=== PATIENT | male | born 1960 | race Two or more races ===

== ENCOUNTER 2018-10-28 11:59 | Inpatient (IN) | payer MEDICARE, OTHER ==
[~2018-10-28] VITALS: Ht 175.3 cm; Wt 86.2 kg
[2018-10-28 12:00] VITALS: BP 141/75
[2018-10-28] MEDS ORDERED: LIPITOR80 MG ORAL (12:12)
[2018-10-28] MEDS ORDERED: FOLIC ACID1 M1 PO (12:19)
[2018-10-28] MEDS ORDERED: FENOFIBRATE145 M1 ORAL (12:19)
[2018-10-28] MEDS ORDERED: CLOPIDOGREL75 MG ORAL (12:19)
[2018-10-28] MEDS ORDERED: NORCO 5-325 TA1 EACH ORAL (12:19)
[2018-10-28] MEDS ORDERED: ATORVASTATIN CA40 MG ORAL (12:19)
[2018-10-28] MEDS ORDERED: POTASSIUM CHLO10 ME3 ORAL (12:19)
[2018-10-28] MEDS ORDERED: BENAZEPRIL HCL40 MG ORAL (12:19)
[2018-10-28] MEDS ORDERED: METFORMIN500 MG/5 M PO (12:19)
[2018-10-28] MEDS ORDERED: CHANTIX0.5 MG PO (12:19)
[2018-10-28] MEDS ORDERED: CENTRUM SILVER1 EAC2 PO (12:19)
[2018-10-28] MEDS ORDERED: VERAPAMIL ER240 M2 PO (12:19)
[2018-10-28] MEDS ORDERED: PYRIDOXINE HCL25 MG PO (12:19)
[2018-10-28] MEDS ORDERED: Sodium Chloride 500ML 500 ML IV ONE (13:23)
[2018-10-28 13:55] LABS: BASOPHILS % (AUTO) 0.7 % (0.0-2.0); EOSINOPHILS % (AUTO) 0.4 % (0.0-3.0); HEMATOCRIT 50.8 % (42.0-52.0); LYMPHOCYTES % (AUTO) 17.4 % (20.0-45.0); MEAN CORPUSCULAR VOLUME 81 FL (80-99); MONOCYTES % (AUTO) 4.6 % (1.0-10.0); NEUTROPHILS % (AUTO) 76.9 % (45.0-75.0); PLATELET COUNT 339 K/UL (150-450); RED BLOOD COUNT 6.28 M/UL (4.70-6.10); RED CELL DISTRIBUTION WIDTH 13.2 % (11.6-14.8); WHITE BLOOD COUNT 10.7 K/UL (4.8-10.8)
[2018-10-28 13:57] LABS: ANION GAP 11 mmol/L (5-15); BLOOD UREA NITROGEN 17 mg/dL (7-18); CALCIUM 9.4 MG/DL (8.5-10.1); CARBON DIOXIDE 27 MMOL/L (21-32); CHLORIDE 106 MMOL/L (98-107); CREATININE 0.9 MG/DL (0.55-1.30); POTASSIUM 3.7 MMOL/L (3.5-5.1); SODIUM 144 MMOL/L (136-145)
[2018-10-28 14:11] LABS: ALANINE AMINOTRANSFERASE 28 U/L (12-78); ALBUMIN 3.7 G/DL (3.4-5.0); ALBUMIN/GLOBULIN RATIO 0.8 (1.0-2.7); ALKALINE PHOSPHATASE 59 U/L (46-116); ASPARTATE AMINO TRANSFERASE 23 U/L (15-37); BILIRUBIN,TOTAL 0.4 MG/DL (0.2-1.0); CKMB 1.6 NG/ML (0.0-3.6); CREATINE KINASE 74 U/L (26-308)
--- NOTE | 2018-10-28 15:04 | Diagnostic Imaging Report ---
Indications: Dizziness Technique: Spiral acquisitions obtained through the brain. Angled axial and coronal 5 x 5 mm slices were reconstructed. Total dose length product 1587.22 mGycm. CTDI vol(s) 70.38 mGy. Dose reduction achieved using automated exposure control Comparison: None. Findings: There is a large right high parietal craniectomy defect with overlying flap. The outer edges of the flap appear calcified. Gas bubbles are seen within the flap. Deep to this is a large area of cystic encephalomalacia. There is resultant ex vacuo dilatation of the body of the right lateral ventricle. Multiple lacunar infarcts are seen in the basal ganglia bilaterally. No acute intracranial hemorrhage. No edema. No mass effect nor midline shift. Otherwise normal traylor-white differentiation. The included sinuses are clear. The mastoids are clear. The orbits are unremarkable. Impression: Evidence of prior right high parietal craniectomy. Note unusual finding of gas bubbles within the past bubbles within the overlying flap. Significance of this is uncertain, possibly of infection should be considered. Comparison with prior exams if any available would be useful Large area of right right middle cystic encephalomalacia, presumably related to the above surgery. Correlate with surgical history. Multiple old bilateral lacunar infarcts Findings discussed by phone with Dr. Ribeiro in the emergency room at the time of interpretation The CT scanner at [facility] is accredited by the [employer] and the scans are performed using protocols designed to limit radiation exposure to as low as reasonably achievable to attain images of sufficient resolution adequate for diagnostic evaluation.
--- NOTE | 2018-10-28 15:15 | Emergency Room Report ---
History of Present Illness General Chief Complaint: Generalized Weakness Source: Patient Present Illness HPI Patient presents with complaints of dizziness Reports that over the past 2 days he had extreme ataxia as well Patient reports that he had a large CVA in 1999 for Reports that initially as a child he also had a plastic flap Which had to be changed later Patient usually and weight with a walker Again reports that over the past 2 days he has had difficulty walking feels unstable also reaching for different things he feels different from his usual Denies any focal weakness denies any headache denies any fevers denies any neck pain Patient reports that 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 but 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 Allergies: Coded Allergies: No Known Allergies (Unverified , 10/28/18) Patient History Past Medical History: see triage record Pertinent Family History: none Reviewed Nursing Documentation: PMH: Agreed; PSxH: Agreed Nursing Documentation-PMH Hx Diabetes: Yes Review of Systems All Other Systems: negative except mentioned in HPI Physical Exam Vital Signs Date Time Temp Pulse Resp B/P (MAP) Pulse Ox O2 Delivery O2 Flow Rate FiO2 10/28/18 11:48 99.1 72 16 154/76 100 Room Air Sp02 EP Interpretation: reviewed, normal General Appearance: well appearing, no apparent distress Head: other - Right flap on the right parietal region Eyes: right eye other - lazy eye ENT: normal pharynx, no angioedema Neck: supple Respiratory: lungs clear, normal breath sounds, no retraction Cardiovascular #1: regular rate, rhythm, no gallop Gastrointestinal: non tender, soft, no mass Musculoskeletal: other - Patient has some essential tremors, equal professional driver bilaterally, shows signs of unsteady gait however no obvious focal deficit Neurologic: alert, oriented x3, other - As above Skin: normal color, no rash Lymphatic: no adenopathy Medical Decision Making Diagnostic Impression: Primary Impression: Ataxia Additional Impression: Dizziness ER Course Patient is a fairly complex patient with multiple differential to consideration including but not limited to cardiac cardiopulmonary, neurological, neurosurgical and vascular emergencies Patient CT head was reported by radiology as having areas of air bubbles will differentials were considered for this Including chronic changes versus possible infectious pathology Patient is afebrile Does not show any focality on his exam However given his ataxic complaints and multiple comorbidities Patient is requested for inpatient admission and care Attempt is being made to obtain previous CT imaging from [facility] Labs Test 11/29/18 13:14 White Blood Count 10.7 K/UL (4.8-10.8) Red Blood Count 6.28 M/UL (4.70-6.10) Hemoglobin 17.0 G/DL (14.2-18.0) Hematocrit 50.8 % (42.0-52.0) Mean Corpuscular Volume 81 FL (80-99) Mean Corpuscular Hemoglobin 27.0 PG (27.0-31.0) Mean Corpuscular Hemoglobin Concent 33.4 G/DL (32.0-36.0) Red Cell Distribution Width 13.2 % (11.6-14.8) Platelet Count 339 K/UL (150-450) Mean Platelet Volume 6.8 FL (6.5-10.1) Neutrophils (%) (Auto) 76.9 % (45.0-75.0) Lymphocytes (%) (Auto) 17.4 % (20.0-45.0) Monocytes (%) (Auto) 4.6 % (1.0-10.0) Eosinophils (%) (Auto) 0.4 % (0.0-3.0) Basophils (%) (Auto) 0.7 % (0.0-2.0) Sodium Level 144 MMOL/L (136-145) Potassium Level 3.7 MMOL/L (3.5-5.1) Chloride Level 106 MMOL/L (98-107) Carbon Dioxide Level 27 MMOL/L (21-32) Anion Gap 11 mmol/L (5-15) Blood Urea Nitrogen 17 mg/dL (7-18) Creatinine 0.9 MG/DL (0.55-1.30) Estimat Glomerular Filtration Rate > 60 mL/min (>60) Glucose Level 100 MG/DL (74-106) Calcium Level 9.4 MG/DL (8.5-10.1) Total Bilirubin 0.4 MG/DL (0.2-1.0) Aspartate Amino Transf (AST/SGOT) 23 U/L (15-37) Alanine Aminotransferase (ALT/SGPT) 28 U/L (12-78) Alkaline Phosphatase 59 U/L (46-116) Total Creatine Kinase 74 U/L (26-308) Creatine Kinase MB 1.6 NG/ML (0.0-3.6) Creatine Kinase MB Relative Index 2.1 Troponin I 0.000 ng/mL (0.000-0.056) Total Protein 8.3 G/DL (6.4-8.2) Albumin 3.7 G/DL (3.4-5.0) Globulin 4.6 g/dL Albumin/Globulin Ratio 0.8 (1.0-2.7) Rhythm Strip Diag. Results EP Interpretation: yes Rate: 88 Rhythm: NSR, no PVC's, no ectopy CT/MRI/US Diagnostic Results CT/MRI/US Diagnostic Results : Impression CT headImpression: Evidence of prior right high parietal craniectomy. Note unusual finding of gas bubbles within the past bubbles within the overlying flap. Significance of this is uncertain, possibly of infection should be considered. Comparison with prior exams if any available would be useful Large area of right right middle cystic encephalomalacia, presumably related to the above surgery. Correlate with surgical history. Multiple old bilateral lacunar infarcts Last Vital Signs Date Time Temp Pulse Resp B/P (MAP) Pulse Ox O2 Delivery O2 Flow Rate FiO2 10/28/18 12:00 74 16 Room Air 10/28/18 12:00 97.8 141/75 98 Status: improved Disposition: ADMITTED INPATIENT Condition: Serious Mj Ribeiro DO Oct 28, 2018 15:15
--- NOTE | 2018-10-28 16:59 | Diagnostic Imaging Report ---
Indication: Chest pain Technique: One view of the chest Comparison: none Findings: Lungs and pleural spaces are clear. Heart size is normal Impression: No acute process
[2018-10-28 19:40] VITALS: BP 143/85
[2018-10-28 20:05] VITALS: BP 143/85
[2018-10-28] MEDS ORDERED: Gadavist 7.5mMol/7.5ml vial IV PRN (20:15)
[2018-10-28] MEDS ORDERED: Aspirin Baby 81mg ORAL SCH (20:15)
[2018-10-28] MEDS ORDERED: Tylenol #3 tab (300mg/30mg) ORAL PRN (20:30)
[2018-10-28] MEDS: Atorvastatin 20mg tab ORAL SCH (22:28)
[2018-10-28] MEDS: Heparin 5000 units/ml inj SUBQ SCH (22:29)
[2018-10-28] MEDS: 1/2NS w/KCl 20mEq 1000ml 1,000 ML IV SCH (22:29)
[2018-10-28] MEDS: NovoLOG Insulin Flexpen SUBQ SCH (22:30)
--- NOTE | 2018-10-28 22:45 | History and Physical Report ---
DATE OF ADMISSION: 10/28/2018 REASON FOR ADMISSION: Dizziness, weakness, and abnormal CT scan of the brain. HISTORY OF PRESENT ILLNESS: This is a 58-year-old male, who has had two days of progressive ataxia and dizziness upon standing. He notes symptoms were fairly acute in onset and progressive and relatively unusual for him although he does have a baseline neurologic deficits. Today, he was unable to get out of bed and mobilize to prepare any food for himself and has not eaten as a result. He came to the emergency room for further evaluation. The patient has a history of childhood head trauma and had a posterior plastic flap placement in the occiput. He also suffered several strokes the most significant was in the year 1999 which resulted in left-sided weakness and blindness for some time that has recovered. His mobility is also impaired at baseline due to the left foot drop and recent foot surgery bilaterally. MEDICATIONS: Prior to admission, reviewed and reconciled. ALLERGIES: None known. PAST MEDICAL HISTORY: History of head trauma as described above, cerebrovascular disease with prior cerebrovascular accident, type 2 diabetes mellitus, hypertension, hypertriglyceridemia. FAMILY HISTORY: Noncontributory. SOCIAL HISTORY: He denies smoking, alcohol, or substance abuse. REVIEW OF SYSTEMS: No fevers or chills. No cough or sputum production. No history of asthma or blood clots in the legs. His diabetes is managed with oral therapy. He has been on anti-lipid drugs. There is no history of thyroid impairment. His blood pressure has been controlled. He denies any exertional chest pain. No history of heart attacks. He has not had any change in bowel habits. There is no history of prostate cancer or elevated PSA. No kidney disease. PHYSICAL EXAMINATION: VITAL SIGNS: Temperature 99.1, blood pressure 154/76, heart rate 72, respiratory rate 16, and oxygen saturation on room air 100%. HEENT: Scalp reveals a soft bulging area on the occiput. Conjunctiva pink. Sclerae are anicteric. Oropharynx clear. Mucous membranes moist. NECK: Supple. Jugular venous pressure normal. Carotid upstrokes without delay. LUNGS: Clear. CARDIAC: Regular rhythm and rate. Normal S1 and S2 with a fourth heart sound. ABDOMEN: Soft and nontender. No guarding, rebound or hepatosplenomegaly. EXTREMITIES: With no edema. He walks with a cane. His gait is unsteady. No gross orthostatic changes are noted. canals are without wax. LABORATORY AND DIAGNOSTIC DATA: EKG reveals sinus rhythm, nonspecific ST-T wave change. CAT scan of the brain reveals large area of right middle cystic encephalomalacia, prior right high parietal craniectomy. The flap has some gas bubbles of uncertain etiology, bilateral lacunar infarcts noted. LABORATORY DATA: White count 10.7, hemoglobin 17. Chemistry panel within normal limits. Troponin negative. IMPRESSION: This is a 58-year-old male with prior cerebrovascular accident and head trauma with encephalomalacia and flap who has an abnormal CAT scan study that suggests some unusual gas bubbles in the flap region. It is unclear whether these may represent a new infection or chronic scarred related changes. Further the patient has complaints of dizziness and unsteadiness and orthostatic symptoms. Considerations would include cerebrovascular insufficiency, metabolic derangement, or BPPV. Other problems include hypertension, type 2 diabetes mellitus, and hypertriglyceridemia. RECOMMENDATIONS: 1. Hydration. 2. Monitor orthostatics. 3. Metabolic profile. 4. MRI scan of the brain with gadolinium. 5. Neuro consult to follow. 6. Carotid duplex study. 7. Insulin coverage by sliding scale. 8. Avoid tight blood pressure control. 9. Anti-platelet and anti-lipid therapy at this time. 10. Further recommendations will follow. Alexander Schuler M.D. DR: Louis JOB#: [id number] CC:
[2018-10-29 00:13] VITALS: BP 141/84
[2018-10-29 04:51] VITALS: BP 155/94
[2018-10-29] MEDS: 1/2NS w/KCl 20mEq 1000ml 1,000 ML IV SCH ×3 (04:57→21:00)
[2018-10-29] MEDS: NovoLOG Insulin Flexpen SUBQ SCH ×4 (06:00→21:00)
[2018-10-29] MEDS: metFORMIN 500mg tab ORAL SCH ×2 (06:01→17:12)
[2018-10-29] MEDS ORDERED: NovoLOG Insulin Flexpen SUBQ SCH (06:30)
[2018-10-29 07:14] LABS: BASOPHILS % (AUTO) 0.8 % (0.0-2.0); EOSINOPHILS % (AUTO) 3.2 % (0.0-3.0); HEMATOCRIT 48.1 % (42.0-52.0); LYMPHOCYTES % (AUTO) 29.1 % (20.0-45.0); MEAN CORPUSCULAR VOLUME 80 FL (80-99); NEUTROPHILS % (AUTO) 58.8 % (45.0-75.0); PLATELET COUNT 342 K/UL (150-450); RED BLOOD COUNT 6.01 M/UL (4.70-6.10); RED CELL DISTRIBUTION WIDTH 13.1 % (11.6-14.8); WHITE BLOOD COUNT 9.9 K/UL (4.8-10.8)
[2018-10-29 07:28] LABS: ALANINE AMINOTRANSFERASE 26 U/L (12-78); ALBUMIN 3.5 G/DL (3.4-5.0); ALBUMIN/GLOBULIN RATIO 0.8 (1.0-2.7); ALKALINE PHOSPHATASE 57 U/L (46-116); ANION GAP 11 mmol/L (5-15); ASPARTATE AMINO TRANSFERASE 20 U/L (15-37); BILIRUBIN,TOTAL 0.4 MG/DL (0.2-1.0); BLOOD UREA NITROGEN 21 mg/dL (7-18); CALCIUM 8.9 MG/DL (8.5-10.1); CARBON DIOXIDE 23 MMOL/L (21-32); CHLORIDE 108 MMOL/L (98-107); CHOLESTEROL 122 MG/DL (< 200); CREATININE 0.8 MG/DL (0.55-1.30); HDL CHOLESTEROL 32 MG/DL (40-60); POTASSIUM 3.6 MMOL/L (3.5-5.1); SODIUM 142 MMOL/L (136-145); TRIGLYCERIDES 288 MG/DL (30-150)
[2018-10-29 08:00] VITALS: BP 146/82
[2018-10-29] MEDS: Pyridoxine 50mg tab ORAL SCH (10:16)
[2018-10-29] MEDS: Heparin 5000 units/ml inj SUBQ SCH ×2 (10:24→21:34)
--- NOTE | 2018-10-29 11:23 | Diagnostic Imaging Report ---
Indication: Dizziness. History of craniotomy Technique: sagittal T1 fast spin echo, axial T1 and T2 FLAIR PROPELLER, axial T2 FS PROPELLER, T2* GRE, axial diffusion weighted images, post contrast axial and coronal T1 FLAIR PROPELLER images. ADC and exponential ADC maps generated Comparison: Head CT 10/28/2018 Findings: Exam is somewhat limited, as the postcontrast axial images do not include the vertex. Per technologist, patient moved during the exam but this was not caught at the time. There is a right parietal craniectomy, also demonstrated previously. There is susceptibility artifact from a flap, presumably from the metal fasteners at the periphery. Low T1 signal is seen within the layers of the flap. It is otherwise well demonstrated on the other axial sequences.. On the postcontrast images, the flap does not appear to be hyperemic. The gas bubbles described on recent CT scan are not apparent on MR. There is subjacent cystic encephalomalacia of the right parietal lobe, resulting in ex vacuo dilatation of the posterior body of the right lateral ventricle. No evidence of associated hemorrhage. No abnormal areas of restricted diffusion to suggest acute infarction. No acute hemorrhage or edema. No mass effect nor midline shift. No abnormal contrast enhancement. There is age-related enlargement of the ventricles and extra axial CSF spaces, in addition to the ex vacuo dilatation as described above. Multiple lacunar infarcts are seen in the bilateral thalami, bilateral basal ganglia, bilateral mays radiata. The vascular flow voids are preserved.. Visualized orbits and sinuses are unremarkable. Impression: Right parietal craniectomy. Note that gas bubbles are seen within the flap on recent CT, not apparent on MRI. No definite hyperemia of the flap to suggest infection Large area of cystic encephalomalacia of the right parietal lobe, presumably relating to the prior surgery. Correlation with surgical history is recommended Multiple old bilateral lacunar infarcts Age-related volume loss and periventricular deep white matter low-attenuation consistent with chronic deep white matter ischemic change Negative for acute intrarenal bleed, mass effect, infarct, or contrast enhancing lesion.
[2018-10-29 12:00] VITALS: BP 148/98
[2018-10-29 16:00] VITALS: BP 135/70
[2018-10-29 20:34] VITALS: BP 130/93
[2018-10-29] MEDS: Atorvastatin 20mg tab ORAL SCH (21:30)
--- NOTE | 2018-10-29 23:15 | Progress Note ---
DATE: 10/29/2018 CARDIOLOGY AND INTERNAL MEDICINE PROGRESS NOTE SUBJECTIVE: The patient feels slightly better. Still dizzy and unsteady on his feet. He usually ambulates with a cane, but he was not able to do so alone at this time with feeling that he may fall. OBJECTIVE: VITAL SIGNS: Blood pressure 148/98, pulse 72, respiratory rate 20, and afebrile. HEENT: Ear canals are clear. NECK: Supple. LUNGS: Clear. CARDIAC: Regular. Normal S1 and S2 with a fourth heart sound. ABDOMEN: Soft. EXTREMITIES: With no edema. Left-sided weakness noted. LABORATORY AND IMAGING DATA: An MRI of the brain reveals no evidence of "bubbles" in the occipital flap from prior head trauma, and multiple old strokes. White count 9.9 and hemoglobin 16. Potassium 3.6, BUN 29, and creatinine 0.8. Triglycerides 288 and total cholesterol 122. Folate 65. TSH 1.7. B12 and vitamin D pending. IMPRESSION: This is a 58-year-old male with cerebrovascular disease, prior cerebrovascular accident, left footdrop, and prior history of head trauma as a young man, who presented with unsteady gait, dizziness, and some ataxia. Concerns at this time would include subcortical cerebrovascular accident or BPPV. His MRI does not reveal any sign of infection and his cardiovascular parameters reveal slightly elevated blood pressure, but otherwise stable parameters. Elevated triglycerides are noted as well. RECOMMENDATIONS: 1. Continue observation. 2. Neuro checks. 3. Hydration. 4. Await results of B12 level. 5. Monitor orthostatic anti-lipid therapy. 6. DVT prophylaxis. 7. Physical and occupational therapy assessments. Alexander Schuler M.D. : RIC JOB#: [id number] CC:
[2018-10-30] VITALS: BP 139/88
[2018-10-30 04:00] VITALS: BP 124/72
[2018-10-30] MEDS: NovoLOG Insulin Flexpen SUBQ SCH ×4 (06:23→21:00)
[2018-10-30] MEDS: metFORMIN 500mg tab ORAL SCH ×2 (06:31→17:37)
[2018-10-30 08:00] VITALS: BP 139/89
[2018-10-30] MEDS: Pyridoxine 50mg tab ORAL SCH (09:21)
[2018-10-30] MEDS: Heparin 5000 units/ml inj SUBQ SCH ×2 (09:22→21:24)
[2018-10-30] MEDS ORDERED: 1/2NS w/KCl 20mEq 1000ml 1,000 ML IV SCH ×2 (10:30→21:00)
[2018-10-30 12:00] VITALS: BP 176/100
--- NOTE | 2018-10-30 14:42 | Cardiology Report ---
APPROVED REPORT EXAM: Two-dimensional and M-mode echocardiogram with Doppler and color Doppler. INDICATION CVA/TIA M-Mode DIMENSIONS IVSd0.9 (0.7-1.1cm)Left Atrium (MM)4.2 (1.6-4.0cm) LVDd5.3 (3.5-5.6cm)Aortic Root3.7 (2.0-3.7cm) PWd1.3 (0.7-1.1cm)Aortic Cusp Exc.2.0 (1.5-2.0cm) LVDs3.5 (2.5-4.0cm) PWs1.6 cm Normal left ventricular chamber size, systolic function and wall motion. Left ventricular ejection fraction estimated to be 55 %. Borderline mild left ventricular hypertrophy. No evidence of pericardial effusion. All other cardiac chamber sizes are within normal limits. Mild focal aortic valve sclerosis with adequate cusp excursion. Mildly thickened mitral valve leaflets with normal excursion. Mitral annulus and aortic root calcification. Pulmonic valve not well visualized. Normal tricuspid valve structure. IVC measured 2.1 cm with physiologic collapse. A color flow and spectral Doppler study was performed and revealed: Trace mitral regurgitation. Mitral diastolic velocities suggest reduced left ventricular relaxation c/w borderline LV diastolic dysfunction. Trace tricuspid regurgitation. Tricuspid systolic velocities suggests peak right ventricular systolic pressure of 15 mmHg.
[2018-10-30] MEDS: 1/2NS w/KCl 20mEq 1000ml 1,000 ML IV SCH (15:17)
[2018-10-30 16:00] VITALS: BP 139/87
[2018-10-30 20:04] VITALS: BP 143/88
[2018-10-30] MEDS: Atorvastatin 20mg tab ORAL SCH (21:25)
--- NOTE | 2018-10-30 23:00 | Progress Note ---
DATE: 10/30/2018 INTERNAL MEDICINE AND CARDIOLOGY PROGRESS NOTE SUBJECTIVE: The patient ____ feel better, but still has dizziness at times, not necessarily upon standing and not definitively with head turning. He has nonorthostatic based on vital signs. OBJECTIVE: VITAL SIGNS: Blood pressure 138/89, pulse 78, respirations 18, and temperature max 99.6 degrees. LUNGS: Clear. CARDIAC: Regular. Normal S1 and S2 with no murmur. ABDOMEN: Soft. EXTREMITIES: No edema. Left foot drop is noted. Mild left weakness is noted. DIAGNOSTIC DATA: Echocardiogram with normal ejection fraction and mild degenerative valve disease. MRI of the brain with multiple old bilateral lacunar infarcts and encephalomalacia with no signs of bubbles in the flap from prior injury site. IMPRESSION: 1. Possible subcortical CVA. 2. Possible BPPV. 3. Chronic gait abnormality due to foot drop and prior CVA. 4. Hypertensive heart disease. 5. Type 2 diabetes mellitus. 6. Hyperlipidemia. PLAN: 1. Adjust IV fluids. 2. Advance diet. 3. Mobilize with physical therapy, antiplatelet therapy, and anti-lipid therapy. 4. Optimize blood glucose and high blood pressure control. DISCHARGE PLANNING: Await carotid duplex study. Alexander Schuler M.D. DR: NOEL JOB#: [id number] CC:
[2018-10-31] VITALS (7 sets, daily range): BP systolic 133–152; BP diastolic 86–105
[2018-10-31] MEDS: NovoLOG Insulin Flexpen SUBQ SCH ×4 (06:20→20:41)
[2018-10-31] MEDS: metFORMIN 500mg tab ORAL SCH ×2 (06:53→17:02)
[2018-10-31 08:13] LABS: BASOPHILS % (AUTO) 1.2 % (0.0-2.0); EOSINOPHILS % (AUTO) 3.4 % (0.0-3.0); HEMATOCRIT 46.5 % (42.0-52.0); HEMOGLOBIN 15.4 G/DL (14.2-18.0); MEAN CORPUSCULAR VOLUME 80 FL (80-99); MONOCYTES % (AUTO) 9.2 % (1.0-10.0); NEUTROPHILS % (AUTO) 53.3 % (45.0-75.0); PLATELET COUNT 306 K/UL (150-450); RED BLOOD COUNT 5.81 M/UL (4.70-6.10); RED CELL DISTRIBUTION WIDTH 12.6 % (11.6-14.8); WHITE BLOOD COUNT 8.2 K/UL (4.8-10.8)
[2018-10-31 09:12] LABS: ALANINE AMINOTRANSFERASE 32 U/L (12-78); ALBUMIN 3.3 G/DL (3.4-5.0); ALBUMIN/GLOBULIN RATIO 0.8 (1.0-2.7); ALKALINE PHOSPHATASE 50 U/L (46-116); ANION GAP 10 mmol/L (5-15); ASPARTATE AMINO TRANSFERASE 22 U/L (15-37); BILIRUBIN,TOTAL 0.4 MG/DL (0.2-1.0); BLOOD UREA NITROGEN 16 mg/dL (7-18); CALCIUM 8.4 MG/DL (8.5-10.1); CARBON DIOXIDE 23 MMOL/L (21-32); CHLORIDE 109 MMOL/L (98-107); CREATININE 0.7 MG/DL (0.55-1.30); POTASSIUM 3.6 MMOL/L (3.5-5.1); SODIUM 142 MMOL/L (136-145)
[2018-10-31] MEDS: Pyridoxine 50mg tab ORAL SCH (09:40)
[2018-10-31] MEDS: Heparin 5000 units/ml inj SUBQ SCH ×2 (09:41→20:39)
[2018-10-31] MEDS: 1/2NS w/KCl 20mEq 1000ml 1,000 ML IV SCH (11:08)
[2018-10-31] MEDS: Atorvastatin 20mg tab ORAL SCH (20:37)
[2018-11-01 00:13] VITALS: BP 152/90
[2018-11-01 04:38] VITALS: BP 152/90
[2018-11-01] MEDS: metFORMIN 500mg tab ORAL SCH (06:01)
[2018-11-01] MEDS: NovoLOG Insulin Flexpen SUBQ SCH ×2 (06:01→11:30)
[2018-11-01 08:00] VITALS: BP 141/88
[2018-11-01] MEDS: Pyridoxine 50mg tab ORAL SCH (08:27)
[2018-11-01] MEDS: Heparin 5000 units/ml inj SUBQ SCH (08:28)
[2018-11-01 12:00] VITALS: BP 153/91
--- NOTE | 2018-11-01 13:11 | Diagnostic Imaging Report ---
APPROVED REPORT CPT Code: 00234 Vascular Symptoms Comments: DIZZINESS AND VERTIGO. CAROTID (BILATERAL) - Imaging reveals no significant plaque within the right and left extracranial carotid arteries. The Doppler spectral flow analysis is within normal limits throughout the extracranial carotid arteries bilaterally. VERTEBRAL- The vertebral arteries are within normal limits.
[2018-11-01] MEDS ORDERED: NS 275ml ONE (13:55)
[2018-11-01] MEDS ORDERED: Tubing IV Secondary IV ONE (13:55)
--- NOTE | 2018-11-02 05:45 | Progress Note ---
DATE: 10/31/2018 CARDIOLOGY AND INTERNAL MEDICINE PROGRESS NOTE Late entry for 10/31/2018. SUBJECTIVE: The patient was seen and evaluated. Family members at bedside. The patient's gait is improved, still not at baseline, but better. He is able to ambulate with a walker. PHYSICAL EXAMINATION: VITAL SIGNS: Blood pressure 152/90, heart rate 62, respiratory rate 18. NECK: Supple. LUNGS: Clear. CARDIAC: Regular rate. Normal S1, S2 with a fourth heart sound. ABDOMEN: Soft, no edema. EXTREMITIES: Mild left weakness and unsteady gait. Non-orthostatic. No asterixis. LABORATORY DATA: Notable for magnesium 1.5. IMPRESSION: 1. Possible subcortical cerebrovascular disease. 2. Cerebrovascular disease with prior cerebrovascular accidents. 3. Left foot drop status post bilateral foot surgeries. 4. Hypomagnesemia. 5. Hypertension with hypertensive heart disease. PLAN: 1. Avoid tight blood pressure control. 2. Continue physical and occupational therapies. 3. Taper off hydration and replace magnesium intravenously. 4. Discharge planning initiated. Alexander Schuler M.D. DR: SANTA JOB#: [id number] CC:
--- NOTE | 2018-11-02 08:30 | Progress Note ---
DATE: 11/01/2018 CARDIOLOGY PROGRESS NOTE SUBJECTIVE: The patient feels better. He is ambulatory with a walker. He is status post IV replacement with magnesium. Nonorthostatic. Appetite good. OBJECTIVE: VITAL SIGNS: Blood pressure 153/91, pulse 64, respirations 18. NECK: Supple. LUNGS: Clear. CARDIAC: Regular. Normal S1 and S2 with a fourth heart sound. ABDOMEN: Soft, no edema. IMPRESSION: 1. Subcortical CVA, suspected possible component of BPPV. 2. Footdrop. 3. Left hemiparesis. 4. Hypomagnesemia. 5. Hypertensive heart disease. 6. Corrected hypovolemia and dehydration. PLAN: 1. Outpatient followup and physical therapy arranged. 2. Avoid tighter blood pressure control for now. Reassess blood pressure parameters as outpatient. 3. Anti-platelet and anti-lipid therapy without change. We will follow. Alexander Schuler M.D. DR: ISSA JOB#: [id number] CC:
--- NOTE | 2018-11-04 11:11 | Discharge Summary ---
Discharge Summary Discharge Summary _ DATE OF ADMISSION: 10/28/2018 DATE OF DISCHARGE: 11/01/2018 REASON FOR ADMISSION: 58 years old male with past medical history of head trauma at childhood , cerebrovascular disease with history of multiple CVA, type 2 diabetes mellitus , hypertension, hypertriglyceridemia, presented with 2 days of progressive ataxia and dizziness upon standing. Symptoms were fairly acute and progressively worse. Patient was unable to get out of the bed and prepare food for himself. Patient with a history of childhood head trauma, status post posterior flap replacement in the occipital area. He also suffered several strokes, most significant in 1999 , which resulted in left-sided weakness and blindness , and impacted his mobility. At the baseline he had left foot drop and recent bilateral foot surgery. Upon evaluation vital signs were stable. Laboratory workup revealed WBC 10.7. Stable hemoglobin. Chemistry within normal limits. Troponin negative. EKG reveals sinus rhythm with nonspecific ST-T wave changes. CT of the brain revealed evidence of prior right high parietal craniectomy. Noted unusual findings of gas bubbles within the overlying flap. Significance was uncertain, but possibility of infection should be considered. Large area of right right middle cystic encephalomalacia, presumably related to the above surgery. Multiple old bilateral lacunar infarcts rcts noted. Patient was admitted for further management of dizziness and ataxia to work out for cerebrovascular insufficiency, metabolic derangement or BPPV. HOSPITAL COURSE: Patient admitted and started on gentle IV hydration. Orthostatic vital signs revealed no orthostatic changes. Metabolic profile revealed stable B 12 and folate level. Patient was continued on B6 and folate supplements. RPR nonreactive. MRI scan of the brain revealed right parietal craniectomy. Gas bubbles seen within the flap on recent CT, were not apparent on MRI. No definite hyperemia of the flap to suggest infection Large area of cystic encephalomalacia of the right parietal lobe, presumably relating to the prior surgery. Multiple old bilateral lacunar infarcts noted. Age-related volume loss and periventricular deep white matter low-attenuation consistent with chronic deep white matter ischemic changes. Negative for acute intrarenal bleed, mass effect, infarct, or contrast enhancing lesion. Carotid Doppler was essentially unremarkable Echocardiogram revealed ejection fraction 55%. No wall motion abnormality. Borderline mild left ventricular hypertrophy. No evidence of pericardial effusion. Right ventricular systolic pressure of 15. Blood sugar was managed with sliding scale of insulin. Tight blood pressure control was avoided. Blood pressure was managed with MALI inhibitor and remained stable Dual antiplatelet therapy with aspirin and Plavix continued. Lipid panel revealed elevated triglycerides 288 ,otherwise stable LDL and total cholesterol. Low HDL noted. Patient was counseled on low-fat low-cholesterol diabetic diet. Anti-lipid therapy with statin was continued, and Tricor was added. Patient was working with physical and occupational therapists. Fall precaution maintained. Magnesium was corrected. Bowel regimen instituted. Supportive care provided. Patient clinically improved and was stable for discharge home. FINAL DIAGNOSES: Possible subcortical CVA Cerebrovascular disease with prior cerebrovascular accidents Possible component of BPPV Left hemiparesis Left foot drop, status post bilateral foot surgery Hypertensive heart disease Hypovolemia and dehydration- corrected Hypomagnesemia Diabetes mellitus Hyperlipidemia DISCHARGE MEDICATIONS: See Medication Reconciliation list. DISCHARGE INSTRUCTIONS: Patient was discharged home . Follow up with primary care provider in one week. I have been assigned to dictate discharge summary for this account. I was not involved in the patient's management. Mili Zamudio NP Nov 04, 2018 11:11
--- NOTE | 2018-11-04 20:14 | Cardiology Report ---
APPROVED REPORT EKG Measurement Heart [id number] Normal sinus rhythm Normal ECG
== END 2018-11-01 13:56 | disposition home or self-care (01) | DRG 65 ==
LOC: EDBD 11:59 → EMR 12:32 → 3E 16:21 → EDBEDREQ 19:10 → 3E 10-31 12:16
DX: I63.89 Other cerebral infarction (principal); I69.354 Hemiplegia and hemiparesis following cerebral infarction affecting left non-dominant side; H81.10 Benign paroxysmal vertigo, unspecified ear; E11.9 Type 2 diabetes mellitus without complications; Z87.820 Personal history of traumatic brain injury; I69.398 Other sequelae of cerebral infarction; M21.372 Foot drop, left foot; I13.10 Hypertensive heart and chronic kidney disease without heart failure, with stage 1 through stage 4 chronic kidney disease, or unspecified chronic kidney disease; N18.9 Chronic kidney disease, unspecified; E83.42 Hypomagnesemia; E86.1 Hypovolemia; E86.0 Dehydration; E78.5 Hyperlipidemia, unspecified
CPT/HCPCS: 36415; 70450; 70553; 71045; 80053; 80061; 82306; 82550; 82553; 82607; 82746; 82962; 83735; 84443; 84484; 85025; 86592; 93005; 93306; 93880; 99285; A9585; J1815; J8499

== ENCOUNTER 2019-03-28 08:33 | Emergency (ER) | payer MEDICARE, OTHER ==
[~2019-03-28] VITALS: Ht 175.3 cm; Wt 90.7 kg
[~2019-03-28 08:33] MED LIST: ATORVASTATIN CA40 MG ORAL; BENAZEPRIL HCL40 MG ORAL; CENTRUM SILVER1 EAC2 PO; CHANTIX0.5 MG PO; CLOPIDOGREL75 MG ORAL; FENOFIBRATE145 M1 ORAL; FOLIC ACID1 M1 PO; LIPITOR80 MG ORAL; METFORMIN500 MG/5 M PO; NORCO 5-325 TA1 EACH ORAL; POTASSIUM CHLO10 ME3 ORAL; PYRIDOXINE HCL25 MG PO; VERAPAMIL ER240 M2 PO
[2019-03-28] MEDS ORDERED: CHANTIX0.5 MG PO (08:37)
[2019-03-28] MEDS ORDERED: CENTRUM SILVER1 EAC4 PO (08:37)
--- NOTE | 2019-03-28 08:38 | NUR ---
ED Nurse Note: PT BROUGHT IN TO ER TODAY BY [id number] FROM HOME DUE TO DIZZINESS X YESTERDAY. PT DENIES DIZZINESS AT THIS TIME. PT DENIES DENIES FALL, PAIN, HEAD TRAUMA, HEADACHE, NAUSEA, OR VOMITING. GAIT STEADY WITH CANE. BP: 123/78.
[2019-03-28 08:45] VITALS: BP 123/78
[2019-03-28] MEDS ORDERED: Gadavist 7.5mMol/7.5ml vial IV PRN (09:00)
--- NOTE | 2019-03-28 09:02 | Emergency Room Report ---
History of Present Illness General Chief Complaint: Dizziness Source: Patient Present Illness HPI Patient presents with unsteadiness on his feet which began yesterday. He calls it dizziness. This happened a month ago also. He was hospitalized at [facility] and had an MRI done. He was not told the results of the MRI. He's having difficulty standing and ambulating. 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 She doesn't believe that this weakness is any difference however he feels that is difficult to stand without starting to tip and fall without holding himself up. He denies any headache, fever, chills, nausea, vomiting, diarrhea. His chronic visual loss in the left eye. The patient is stroke in 2003. He states that he is taking Plavix since that time. He denies any seizure activity. The patient occasionally drinks alcohol but denies recent alcohol ingestion. Allergies: Coded Allergies: No Known Allergies (Unverified , 10/28/18) Patient History Past Medical History: see triage record Past Surgical History: other - craneotomy, zaria's tendon surgery L ankle Social History: Reports: smoking, alcohol use; Denies: drug use Social History Narrative at home Reviewed Nursing Documentation: PMH: Agreed; PSxH: Agreed Nursing Documentation-PMH Past Medical History: No History, Except For Hx Cardiac Problems: Yes - stroke Hx Hypertension: Yes Hx Diabetes: Yes Hx Cancer: No Hx Gastrointestinal Problems: No Hx Cerebrovascular Accident: Yes - 2003 Hx Neurologic Surgery: Yes - as a child Review of Systems All Other Systems: negative except mentioned in HPI Physical Exam Vital Signs Date Time Temp Pulse Resp B/P (MAP) Pulse Ox O2 Delivery O2 Flow Rate FiO2 03/28/19 08:29 97.7 80 20 120/68 98 Room Air Sp02 EP Interpretation: reviewed, normal General Appearance: alert, GCS 15, Chronically Ill Head: other - craneotomy L parietal area Eyes: left eye other - dysconjugate gaze L, arcus bilat; bilateral eye PERRL ENT: moist mucus membranes Neck: supple Respiratory: lungs clear, normal breath sounds Cardiovascular #1: regular rate, rhythm Cardiovascular #2: 2+ radial (L) Gastrointestinal: normal inspection, normal bowel sounds, non tender, no mass, non-distended Genitourinary: no CVA tenderness Musculoskeletal: other - tendon deformities L hand - swan neck, brace L ankle Neurologic: alert, oriented x3, motor weakness - L sided, other - + rhomberg Psychiatric: mood/affect normal Reflexes: 3+ knee (R); 2+ knee (L) Skin: normal inspection, warm/dry, other - Tobacco stains Medical Decision Making Diagnostic Impression: Primary Impression: Thalamic infarct, acute Additional Impressions: Status post stroke Status post craniotomy ER Course The patient presents with unsteadiness on his feet. Differential includes CVA, electrolyte imbalance, acute myocardial infarction amongst others. Patient will be evaluated with MRI chest x-ray and labs. (Our CT scanner is down.). He obviously has positive Romberg and cerebellar dysfunction at the moment and it's difficult to ascertain whether this is new from the chronic left-sided weakness that he's had from his primary previous brain injury and a stroke in 2003. EKG no injury. Chest x-ray COPD no infiltrate. Labs unremarkable. Called at 11:25 - + thalamic infarct. Discussed findings with patient. Discussed Dr. Drake Xie - accepted. Not recommend tPA. Patient reports he is taking his Plavix. Transferred in stable condition. Laboratory Tests Test 03/28/19 09:17 White Blood Count 10.0 K/UL (4.8-10.8) Red Blood Count 6.60 M/UL (4.70-6.10) H Hemoglobin 17.6 G/DL (14.2-18.0) Hematocrit 53.5 % (42.0-52.0) H Mean Corpuscular Volume 81 FL (80-99) Mean Corpuscular Hemoglobin 26.7 PG (27.0-31.0) L Mean Corpuscular Hemoglobin Concent 32.8 G/DL (32.0-36.0) Red Cell Distribution Width 13.6 % (11.6-14.8) Platelet Count 301 K/UL (150-450) Mean Platelet Volume 6.7 FL (6.5-10.1) Neutrophils (%) (Auto) 64.1 % (45.0-75.0) Lymphocytes (%) (Auto) 23.2 % (20.0-45.0) Monocytes (%) (Auto) 6.3 % (1.0-10.0) Eosinophils (%) (Auto) 5.0 % (0.0-3.0) H Basophils (%) (Auto) 1.5 % (0.0-2.0) Prothrombin Time 10.6 SEC (9.30-11.50) Prothrombin Time INR 1.0 (0.9-1.1) PTT 27 SEC (23-33) Urine Color Yellow Urine Appearance Clear Urine pH 6 (4.5-8.0) Urine Specific [place] 1.015 (1.005-1.035) Urine Protein 1+ (NEGATIVE) H Urine Glucose (UA) Negative (NEGATIVE) Urine Ketones Negative (NEGATIVE) Urine Blood 3+ (NEGATIVE) H Urine Nitrite Negative (NEGATIVE) Urine Bilirubin Negative (NEGATIVE) Urine Urobilinogen Normal MG/DL (0.0-1.0) Urine Leukocyte Esterase 1+ (NEGATIVE) H Urine RBC 5-10 /HPF (0 - 0) H Urine WBC 0-2 /HPF (0 - 0) Urine Squamous Epithelial Cells Occasional /LPF Urine Bacteria Occasional /HPF (NONE) Sodium Level 142 MMOL/L (136-145) Potassium Level 3.9 MMOL/L (3.5-5.1) Chloride Level 105 MMOL/L (98-107) Carbon Dioxide Level 23 MMOL/L (21-32) Anion Gap 14 mmol/L (5-15) Blood Urea Nitrogen 15 mg/dL (7-18) Creatinine 0.9 MG/DL (0.55-1.30) Estimate Glomerular Filtration Rate > 60 mL/min (>60) Glucose Level 143 MG/DL (74-106) H Calcium Level 9.5 MG/DL (8.5-10.1) Total Bilirubin 0.4 MG/DL (0.2-1.0) Aspartate Amino Transferase (AST) 22 U/L (15-37) Alanine Aminotransferase (ALT) 32 U/L (12-78) Alkaline Phosphatase 63 U/L (46-116) Total Creatine Kinase 87 U/L (26-308) Troponin I 0.000 ng/mL (0.000-0.056) Pro-B-Type Natriuretic Peptide 30 pg/mL (0-125) Total Protein 8.7 G/DL (6.4-8.2) H Albumin 4.5 G/DL (3.4-5.0) Globulin 4.2 g/dL Albumin/Globulin Ratio 1.1 (1.0-2.7) Urine Opiates Screen Negative (NEGATIVE) Urine Barbiturates Screen Negative (NEGATIVE) Phencyclidine (PCP) Screen Negative (NEGATIVE) Urine Amphetamines Screen Negative (NEGATIVE) Urine Benzodiazepines Screen Negative (NEGATIVE) Urine Cocaine Screen Negative (NEGATIVE) Urine Marijuana (THC) Screen Positive (NEGATIVE) H Serum Alcohol < 3 mg/dL Rhythm Strip Diag. Results EP Interpretation: yes Rhythm: NSR, no PVC's, no ectopy Chest X-Ray Diagnostic Results Chest X-Ray Diagnostic Results : Chest X-Ray Ordered: Yes # of Views/Limited/Complete: 1 View Indication: Other EP Interpretation: Yes Interpretation: no consolidation, no effusion, no pneumothorax Impression: No acute disease CT/MRI/US Diagnostic Results CT/MRI/US Diagnostic Results : Imaging Test Ordered: MRI brain with contrast Impression Impression: Positive for acute bilobed lacunar infarct or 2 adjacent infarcts of the posterior left thalamus Negative for acute intracranial bleed, mass effect, or contrast enhancing lesion. Evidence of prior temporoparietal region surgery, also previously described, with craniectomy and flap, underlying cystic encephalomalacia. Correlate with surgical history Age-related volume loss and periventricular deep white matter high T2 signal, consistent with chronic ischemic change Old bilateral basal ganglia lacunar infarcts, also previously noted Last Vital Signs Date Time Temp Pulse Resp B/P (MAP) Pulse Ox O2 Delivery O2 Flow Rate FiO2 03/28/19 12:37 98.3 78 14 126/82 98 Room Air Status: unchanged Disposition: XFER SHT-TRM HOSP Condition: Serious Alexander Mendez MD Mar 28, 2019 09:02
--- NOTE | 2019-03-28 09:22 | NUR ---
ED Nurse Note: XRAY AT BEDSIDE.
[2019-03-28 09:31] LABS: APPEARANCE,URINE CLEAR; BASOPHILS % (AUTO) 1.5 % (0.0-2.0); BILIRUBIN, URINE NEGATIVE (NEGATIVE); GLUCOSE, URINE (UA) NEGATIVE (NEGATIVE); HEMATOCRIT 53.5 % (42.0-52.0); HEMOGLOBIN 17.6 G/DL (14.2-18.0); KETONES,URINE NEGATIVE (NEGATIVE); LEUKOCYTE ESTERASE ,URINE 1+ (NEGATIVE); LYMPHOCYTES % (AUTO) 23.2 % (20.0-45.0); MEAN CORPUSCULAR VOLUME 81 FL (80-99); MONOCYTES % (AUTO) 6.3 % (1.0-10.0); NEUTROPHILS % (AUTO) 64.1 % (45.0-75.0); NITRITE,URINE NEGATIVE (NEGATIVE); PH,URINE 6 (4.5-8.0); PLATELET COUNT 301 K/UL (150-450); PROTEIN,URINE 1+ (NEGATIVE); RED CELL DISTRIBUTION WIDTH 13.6 % (11.6-14.8); UROBILINOGEN,URINE NORMAL MG/DL (0.0-1.0)
--- NOTE | 2019-03-28 09:34 | NUR ---
ED Nurse Note: PT TO MRI VIA [facility].
[2019-03-28 09:40] LABS: COLOR,URINE YELLOW
[2019-03-28 09:42] LABS: ANION GAP 14 mmol/L (5-15); BLOOD UREA NITROGEN 15 mg/dL (7-18); CALCIUM 9.5 MG/DL (8.5-10.1); CARBON DIOXIDE 23 MMOL/L (21-32); CHLORIDE 105 MMOL/L (98-107); CREATININE 0.9 MG/DL (0.55-1.30); POTASSIUM 3.9 MMOL/L (3.5-5.1); SODIUM 142 MMOL/L (136-145)
[2019-03-28 09:52] LABS: ALANINE AMINOTRANSFERASE 32 U/L (12-78); ALBUMIN 4.5 G/DL (3.4-5.0); ALBUMIN/GLOBULIN RATIO 1.1 (1.0-2.7); ALKALINE PHOSPHATASE 63 U/L (46-116); ASPARTATE AMINO TRANSFERASE 22 U/L (15-37); BILIRUBIN,TOTAL 0.4 MG/DL (0.2-1.0); CREATINE KINASE 87 U/L (26-308)
--- NOTE | 2019-03-28 09:58 | Diagnostic Imaging Report ---
Indication: Shortness of breath Technique: One view of the chest Comparison: 10/28/2018 Findings: Lungs and pleural spaces are clear. Heart size is normal. No significant interim change Impression: No acute process
--- NOTE | 2019-03-28 10:43 | NUR ---
ED Nurse Note: PT BACK FROM MRI VIA [facility].
--- NOTE | 2019-03-28 12:13 | Diagnostic Imaging Report ---
Indication: Unsteady gait, dizziness, vertigo Technique: sagittal T1 fast spin echo, axial T1 and T2 FLAIR PROPELLER, axial T2 FS PROPELLER, T2* GRE, axial diffusion weighted images, post contrast axial and coronal T1 FLAIR PROPELLER images. ADC and exponential ADC maps generated Comparison: 10/29/2018 Findings: Patient is status post right temporoparietal craniectomy with placement of a prosthetic flap. This throws off a mild amount of susceptibility artifact which may obscure pathology on a few sequences. There is a large area of underlying posterior parietal encephalomalacia the and adjacent white matter gliosis, also previously demonstrated. This results in ex vacuo dilatation of the posterior body of the right lateral ventricle.. There is a bilobed focus of restricted diffusion in the posterior left thalamus. No other abnormal areas of restricted diffusion to suggest acute infarction. No acute hemorrhage or edema. No mass effect nor midline shift. No abnormal contrast enhancement. There is generalized age-related enlargement of the ventricles and extra axial CSF spaces. There is increased T2 signal in the bilateral periventricular deep white matter, also previously described. The vascular flow voids are preserved. Old lacunar infarcts are seen in the bilateral basal ganglia.. Visualized orbits and sinuses are unremarkable. When compared to the previous exam, findings are unchanged. Impression: Positive for acute bilobed lacunar infarct or 2 adjacent infarcts of the posterior left thalamus Negative for acute intracranial bleed, mass effect, or contrast enhancing lesion. Evidence of prior temporoparietal region surgery, also previously described, with craniectomy and flap, underlying cystic encephalomalacia. Correlate with surgical history Age-related volume loss and periventricular deep white matter high T2 signal, consistent with chronic ischemic change Old bilateral basal ganglia lacunar infarcts, also previously noted Critical value finding discussed by phone with Dr. Mendez at the time of interpretation
--- NOTE | 2019-03-28 12:20 | NUR ---
ED Nurse Note: [facility] CALLED FOR PT REPORT. REPORT GIVEN TO DEMETRIUS FERRARO. FACILITY READY TO ACCEPT PT. PT AWAITING TRANSPORT.
[2019-03-28 12:37] VITALS: BP 126/82
--- NOTE | 2019-03-28 12:37 | NUR ---
ED Nurse Note: [facility] AT BEDSIDE FOR PT TRANSPORT. REPORT GIVEN TO EMS AND RN. PT TAKEN [facility] ALL BELONGINGS ACCOMPANIED BY EMS. VSS.
--- NOTE | 2019-03-29 16:03 | Cardiology Report ---
APPROVED REPORT EKG Measurement Heart [id number] CT [id number] Normal sinus rhythm Septal infarct, age undetermined Abnormal ECG
== END 2019-03-28 12:39 | disposition short-term general hospital (02) ==
LOC: EDBD 08:33 → EMR 08:57
DX: I63.9 Cerebral infarction, unspecified (principal); Z79.02 Long term (current) use of antithrombotics/antiplatelets; I10 Essential (primary) hypertension; E11.9 Type 2 diabetes mellitus without complications
CPT/HCPCS: 36415; 70553; 71045; 80053; 80307; 81003; 82550; 83880; 84484; 85025; 85610; 85730; 93005; 99284; A9585; G0480; 80329